=== PATIENT | female | born 1980 | race Caucasian/White ===

== ENCOUNTER 2018-07-13 10:54 | Emergency (ER) | payer OTHER ==
[2018-07-13] MEDS ORDERED: ONDANSETRON 4 MG/2 ML VIAL IVP ONE (11:08)
[2018-07-13] MEDS ORDERED: NS 1,000 ML IV ONE (11:08)
[2018-07-13 11:21] LABS: PLATELET COUNT 210 10^3/uL (150-400)
--- NOTE | 2018-07-13 11:32 | EDPHY ---
General - History Smoking Status: Current every day smoker Time Seen by Provider: 07/13/18 11:15 Narrative: 1120: I consulted on this patient at the request of LOUISE Hdz. The patient reports that she does have a history of kidney stones, but the kidney stone pain is primarily in her back. Starting 1 hour ago today she developed right lower abdominal pain radiating to her back. On exam she has right lower quadrant tenderness at McBurney's point. Patient will need an abdominopelvic CT and additional medications. (Quincy Arcos) CLINICAL IMPRESSION: Kidney stone, hematuria, ovarian cyst ASSESSMENT/PLAN: Patient is a 37-year-old female with a history of kidney stones who presents to the Emergency Department with sudden-onset right flank and right-sided abdominal pain. Patient is uncomfortable appearing however not toxic- appearing. On physical exam she has right CVA tenderness as well as generalized right lower quadrant tenderness without peritoneal signs. Laboratory studies were reassuring, mild leukocytosis which I suspect was reactive. Urinalysis revealed RBCs, no evidence of infection. negative, rules out ectopic. 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 Patient presents exactly like she has with previous episodes of kidney stones, her history and physical examination today is most suggestive of likely recently passed kidney stone without evidence of infected stone or obstructing stone. Patient had significant improvement of her symptoms in the emergency department. She is new to [place], I have given her referral for PCP, Urology and OBGYN in light of her new diagnosed ovarian cyst. Conservative return precautions discussed. DIFFERENTIAL DX: Flank pain including but not limited to musculoskeletal causes, kidney stone, pyelonephritis, shingles, and intra-abdominal causes such as diverticulitis and appendicitis. ED COURSE: 1118: Case discussed with Dr. Arcos, he also evaluated this patient. 1152: CBC with mild leukocytosis and shift. Metabolic panel with no significant metabolic abnormality or evidence of acute kidney injury. 1259: On repeat examination the patient is much more comfortable appearing, she is in no acute distress. She has very mild suprapubic tenderness to palpation without peritoneal signs. No more flank pain or CVA tenderness. She reports feeling so much better. CHIEF COMPLAINT: Nausea, Right flank and right-sided abdominal pain HPI: Patient is a 37-year-old female with a significant history of kidney stones who presents to the emergency department with acute onset right-sided flank and abdominal pain. Patient reports approximately 1.5 hr prior to arrival she had a sudden onset of right flank and right-sided abdominal pain that is exactly how she has presented with kidney stones in the past. Patient has a history of kidney stones x3, last one 9 years ago requiring stent placement and lithotripsy. This was performed in [place], they are new to the area and she is not have a primary care provider or PCP. Patient has associated diaphoresis when pain is most intense, has had no recent fever. She has decreased appetite and nausea, no vomiting. She denies any chest pain or shortness of breath. She did have an episode of dysuria this morning, denies any hematuria or urinary retention. Patient does have a history of intermittent diarrhea over the last several months, bowel movements otherwise unchanged and without melena or hematochezia. Last menstrual period was 2 weeks ago and heavy which is normal for her, denies any pelvic pain, vaginal pain, vaginal bleeding or vaginal discharge. PMH: Kidney stones Pertinent Past Surgical History: Lithotripsy Family History: Not contributory Social History: Occasional smoking REVIEW OF SYSTEMS: All other systems negative Constitutional: Decreased appetite. No fever, no chills. Eyes: No discharge, vision change ENT: No sore throat, congestion, ear pain. Cardiovascular: No chest pain, no palpitations. Respiratory: No cough, no shortness of breath. Gastrointestinal: Abdominal pain, nausea. Genitourinary: Dysuria, right-sided flank pain. Musculoskeletal: No joint swelling, joint pain, myalgias. Skin: No rashes, color change. Neurological: No headache, dizziness, weakness. PHYSICAL EXAM: General Appearance: Well-appearing, very uncomfortable appearing however not toxic-appearing. HENT: Normocephalic, atraumatic. Bilateral external ears are normal. Bilateral tympanic membranes are normal with pearly denis reflex. Nares are clear, mucosa is pink. Oropharynx is clear however mucosa is very dry, uvula is midline. There is no tonsillar enlargement or exudate. The dentition is normal. Eyes: PERRLA, no acute vision change, nystagmus, swelling, discharge, pain or photosensitivity. Conjunctiva pink, no pallor or injection Neck: Supple, nontender, no lymphadenopathy, no midline pain, FROM, no meningismus. Respiratory: There are no retractions, lungs are clear to auscultation. Cardiac: Regular rate and rhythm, no murmurs or gallops. Gastrointestinal: Patient's abdomen is soft and nondistended, no appreciable abdominal incisions. Patient has tenderness to palpation on the right mid and lower quadrants, right CVA tenderness. Bowel sounds are present. No masses or hernias appreciated. There is no rigidity, negative Rovsing's. Neurological: Alert and oriented x 3, CN 2-12 grossly intact, normal sensation and strength Skin: Warm, dry, no rashes, no nodules on palpation. Musculoskeletal: Extremities are symmetrical, full range of motion, no tenderness, deformity, swelling, or erythema. Psychiatric: Mood and affect are normal, there is no agitation. MEDICAL DECISION MAKING: Patient was seen independently. Secondary supervising physician at time of evaluation was Dr. Arcos, he also evaluated this patient. Diagnosis: Kidney stone, hematuria, ovarian cyst. Summary: Patient is a 37-year-old female with a significant medical history of kidney stones who presents with acute onset right flank and right-sided abdominal pain. Physical exam revealed tenderness to palpation in the generalized right mid and lower quadrant, right CVA tenderness. CBC revealed mild leukocytosis at 9.5 which I suspect is reactive, vital signs were reviewed and there was no evidence of sepsis or serious bacterial illness. BMP revealed no significant metabolic abnormality or DAVID. UA with 50-182 red blood cells, urine sent for culture. CT abdomen and pelvis w/out revealed 5 mm right renal stone at the inferior pole without obstruction, 2 mm hyperdensity in the bladder suggestive of possible recently passed stone as well as 3.6 x 2.9 right ovarian cyst without evidence of rupture. History and physical examination is consistent with kidney stone and ovarian cyst, no evidence of infected stone. Patient was given 1 L of IV fluids, morphine and Toradol with improvement of symptoms in the emergency department. At this time I have considered other etiologies of his pain to include appendicitis, cholecystitis, pancreatitis, ACS, perforated viscus, diverticulitis, hernia, AAA, mesenteric ischemia, herpes zoster or additional emergent intra-abdominal process however low clinical suspicion. negative, rules out ectopic. She has had no pelvic complaints to suggest PID or TOA. Patient is recently new to the area, PCP, Urology and OBGYN referrals were provided. Clinical lab tests: ordered / reviewed. Independent visualization of images, tracing, or specimens: Yes. Decision to obtain medical records or history from someone other than the patient: Yes, Review / Summarize previous medical records: None available Discussed patient with another provider: Yes, Dr. Arcos Patient Progress: Stable, discharge. (Gladys Diego) - Diagnostics Imaging Results: Imaging Impressions Abdomen/Pelvis CT 07/13/18 11:23 Impression: 1. 5-mm right renal stone at the inferior pole without causing obstruction. 2. 2-mm hyperdensity in the bladder that is indeterminate. It might represent a passed stone. 3. 3.6 x 2.9 cm right lower quadrant hypodensity likely representing an ovarian cyst, which can also cause pain. Findings and recommendations discussed with MARIA ELENA Branham at 12:05 p.m. on July 13, 2018. Final report concurs with initial preliminary interpretation. Attention: This examination does not use radiographic contrast, and as such, provides only a limited evaluation of the abdomen, pelvis, and retroperitoneum. If there is further clinical suspicion for pathological conditions, a complete CT evaluation of the abdomen and pelvis utilizing intravenous, oral, and rectal contrast should be considered. - Objective Vital Signs: Initial Vital Signs Temperature (C) 36.3 C 07/13/18 10:57 Heart Rate 68 07/13/18 10:57 Respiratory Rate 18 07/13/18 10:57 Blood Pressure 115/67 07/13/18 10:57 O2 Sat (%) 100 07/13/18 10:57 O2 Delivery Mode Room Air Allergies/Adverse Reactions: No Known Allergies Allergy (Unverified 07/13/18 10:56) Home Medications: Medication Instructions Recorded Hydrocodone/APAP 5/325 [[place] 1 - 2 tab PO Q4H PRN #10 tab 07/13/18 5/325 (*)] Ondansetron Odt [Zofran Odt] 4 mg PO Q8 PRN #10 tab 07/13/18 Laboratory Results: Laboratory Results 07/13/18 11:05 07/13/18 11:05 07/13/18 07/13/18 07/13/18 12:10 11:05 11:05 WBC RBC Hgb Hct MCV MCH MCHC RDW Plt Count MPV Neut % (Auto) Lymph % (Auto) [place] % (Auto) Eos % (Auto) Baso % (Auto) Nucleat RBC Rel Count Absolute Neuts (auto) Absolute Lymphs (auto) Absolute Monos (auto) Absolute Eos (auto) Absolute Basos (auto) Absolute Nucleated RBC Immature Gran % Immature Gran # Sodium 137 mEq/L mEq/L (135-145) Potassium 3.9 mEq/L mEq/L (3.5-5.2) Chloride 109 mEq/L mEq/L (97-110) Carbon Dioxide 21 mEq/l L mEq/l (22-31) Anion Gap 7 mEq/L mEq/L (6-14) BUN 12 mg/dL mg/dL (7-23) Creatinine 0.7 mg/dL mg/dL (0.6-1.0) Estimated GFR > 60 Glucose 114 mg/dL H mg/dL (70-100) Calcium 9.3 mg/dL mg/dL (8.5-10.4) Total Bilirubin 0.6 mg/dL mg/dL (0.1-1.4) Conjugated Bilirubin 0.2 mg/dL mg/dL (0.0-0.5) Unconjugated Bilirubin 0.4 mg/dL mg/dL (0.0-1.1) AST 20 IU/L IU/L (14-46) ALT 27 IU/L IU/L (9-52) Alkaline Phosphatase 50 IU/L IU/L (38-126) Total Protein 6.4 g/dL g/dL (6.3-8.2) Albumin 3.9 g/dL g/dL (3.5-5.0) Beta HCG, Qual NEGATIVE Urine Color YELLOW Urine Appearance HAZY Urine pH 7.0 (5.0-7.5) Ur Specific [place] 1.019 (1.002-1.030) Urine Protein NEGATIVE (NEGATIVE) Urine Ketones 1+ H (NEGATIVE) Urine Blood 3+ H (NEGATIVE) Urine Nitrate NEGATIVE (NEGATIVE) Urine Bilirubin NEGATIVE (NEGATIVE) Urine Urobilinogen NEGATIVE EU EU (0.2-1.0) Ur Leukocyte Esterase NEGATIVE (NEGATIVE) Urine RBC 50-182 /hpf H /hpf (0-3) Urine WBC 1-3 /hpf /hpf (0-3) Ur Epithelial Cells 1+ /lpf /lpf (NONE-1+) Urine Mucus 1+ /lpf /lpf (NONE-1+) Urine Glucose NEGATIVE (NEGATIVE) 07/13/18 11:05 WBC 9.59 10^3/uL H 10^3/uL (3.80-9.50) RBC 4.88 10^6/uL 10^6/uL (4.18-5.33) Hgb 14.5 g/dL g/dL (12.6-16.3) Hct 42.5 % % (38.0-47.0) MCV 87.1 fL fL (81.5-99.8) MCH 29.7 pg pg (27.9-34.1) MCHC 34.1 g/dL g/dL (32.4-36.7) RDW 13.8 % % (11.5-15.2) Plt Count 210 10^3/uL 10^3/uL (150-400) MPV 12.9 fL H fL (8.7-11.7) Neut % (Auto) 58.3 % % (39.3-74.2) Lymph % (Auto) 29.7 % % (15.0-45.0) Sherman % (Auto) 6.3 % % (4.5-13.0) Eos % (Auto) 4.6 % % (0.6-7.6) Baso % (Auto) 0.8 % % (0.3-1.7) Nucleat RBC Rel Count 0.0 % % (0.0-0.2) Absolute Neuts (auto) 5.59 10^3/uL 10^3/uL (1.70-6.50) Absolute Lymphs (auto) 2.85 10^3/uL 10^3/uL (1.00-3.00) Absolute Monos (auto) 0.60 10^3/uL 10^3/uL (0.30-0.80) Absolute Eos (auto) 0.44 10^3/uL H 10^3/uL (0.03-0.40) Absolute Basos (auto) 0.08 10^3/uL 10^3/uL (0.02-0.10) Absolute Nucleated RBC 0.00 10^3/uL 10^3/uL (0-0.01) Immature Gran % 0.3 % % (0.0-1.1) Immature Gran # 0.03 10^3/uL 10^3/uL (0.00-0.10) Sodium Potassium Chloride Carbon Dioxide Anion Gap BUN Creatinine Estimated GFR Glucose Calcium Total Bilirubin Conjugated Bilirubin Unconjugated Bilirubin AST ALT Alkaline Phosphatase Total Protein Albumin Beta HCG, Qual Urine Color Urine Appearance Urine pH Ur Specific [place] Urine Protein Urine Ketones Urine Blood Urine Nitrate Urine Bilirubin Urine Urobilinogen Ur Leukocyte Esterase Urine RBC Urine WBC Ur Epithelial Cells Urine Mucus Urine Glucose Medications Given: Discontinued Medications Sodium Chloride (Ns) 1,000 mls @ 0 mls/hr IV EDNOW ONE; Wide Open PRN Reason: Protocol Stop: 07/13/18 11:09 Last Admin: 07/13/18 11:14 Dose: 1,000 mls Ketorolac Tromethamine (Toradol) 30 mg IVP EDNOW ONE Stop: 07/13/18 11:59 Last Admin: 07/13/18 12:06 Dose: 30 mg Morphine Sulfate (Morphine) 2 mg IVP EDNOW ONE Stop: 07/13/18 11:09 Last Admin: 07/13/18 11:14 Dose: 2 mg Morphine Sulfate (Morphine) 2 mg IVP EDNOW ONE Stop: 07/13/18 11:22 Last Admin: 07/13/18 11:28 Dose: 2 mg Ondansetron HCl (Zofran) 4 mg IVP EDNOW ONE Stop: 07/13/18 11:09 Last Admin: 07/13/18 11:14 Dose: 4 mg Departure - Departure Disposition: Home, Routine, Self-Care Clinical Impression: Kidney stone Condition: Good Instructions: Ovarian Cyst (ED), Kidney Stones (ED) Additional Instructions: DISCHARGE INSTRUCTIONS FROM YOUR PROVIDER Thank you for visiting our emergency department today. Please keep in mind that discharge from the emergency department does not mean that there is nothing wrong - it simply means that we have not identified an emergency condition that requires further evaluation or treatment in the hospital. You should always plan to follow up with primary care for re-evaluation of your condition in the next 2-3 days. You have been given a referral for primary care, Urology and OBGYN, please call and schedule follow-up as discussed. You were found to have a stone in your renal pelvis which does not cause pain. 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 You were also found to have an ovarian cyst, no evidence of rupture. Rest, push fluids (LOTS OF WATER), clear liquid diet then BRAT diet (bananas, rice, applesauce, toast) --if nauseated, slowly advance diet as tolerated. Avoid fatty, spicy, and milk containing foods until feeling better, until the nausea resolves. Urinate regularly. You should be hydrated enough that your urine is almost clear. Urinate after intercourse if sexually active. Follow your symptoms closely. Zofran as prescribed as needed for recurrent nausea and/or development of vomiting. Ibuprofen as prescribed as needed for pain. Take with food. Stop if this upsets your stomach. Do not exceed 2400 mg in 24 hours. Do not take for at least 8 hr after year visit in the emergency department as you were given Toradol. Tylenol every 4-6 hours as directed as needed for less severe pain. Do not exceed 4000 mg in 24 hours. [place] as prescribed as needed for severe pain. Caution - this is a narcotic. This medication contains tylenol (acetaminophen). Do not combine with any additional tylenol. Do not exceed 4000 mg of tylenol in 24 hours. This medication can cause dizziness and/or drowsiness. Do not combine with alcohol or other narcotics. Do not take if you will be driving or operating heavy machinery. Be careful as this medication can be addictive and can cause constipation. Some patients require a stool softener or increased water and dietary fiber while on this medication. Return immediately for any new symptoms ie: fever, chills, painful urination, inability to urinate, recurrent vomiting, concern for dehydration or worsening. Return for increased or unmanageable pain, inability to tolerate the medications , development of worsening back or flank pain, testicular or scrotal pain, redness or swelling, penile discharge, right lower abdominal pain, high fever, shaking chills, recurrent vomiting, vomiting blood, coffee grounds in the vomit , bloody stools or black tarry stools, burning or pain with urination, blood in the urine, inability to urinate, decreased urine output, evidence of dehydration , midline back pain, severe headache, neck pain or stiffness, dizziness, weakness, fainting, chest pain, shortness of breath, rapid or irregular heart beat, numbness, tingling, weakness in your arms or legs or for any other new, worsening or worrisome symptoms. People present with illnesses and injuries in different ways, and it is always possible that we have missed something. Again, thank you for choosing our emergency department. We hope that you feel better. Referrals: Bing Donnelly MD [Medical Doctor] - 2-3 days, call for appt. ( Please establish care with a primary care provider.) Russell Ashley MD [Medical Doctor] - 2-3 days, call for appt. (This is a referral for Urology) Edmund Smyth MD [Medical Doctor] - 2-3 days, call for appt. (This is a referral for OBGYN) Prescriptions: Hydrocodone/APAP 5/325 [[place] 5/325 (*)] 1 - 2 tab PO Q4H PRN #10 tab PRN Reason: Pain, Moderate Ondansetron Odt [Zofran Odt] 4 mg PO Q8 PRN #10 tab PRN Reason: Nausea/Vomiting, Can'T Take Po
[2018-07-13] MEDS ORDERED: KETOROLAC 30 MG/1 ML SDV IVP ONE (11:58)
[2018-07-13 13:31] VITALS: BP 106/62
== END 2018-07-13 13:30 | disposition home or self-care (01) ==
DX: N20.0 Calculus of kidney (principal); N83.201 Unspecified ovarian cyst, right side; E86.9 Volume depletion, unspecified
CPT/HCPCS: 96374; J1885; J2270; J2405